=== PATIENT | female | born 1995 | race Caucasian/White ===

== ENCOUNTER 2018-12-09 22:22 | Emergency (ER) | payer MEDICAID, OTHER ==
[2018-12-09] MEDS ORDERED: guaiFENesin/CODEINE 5 ML UDC PO STA (22:38)
[2018-12-09] MEDS ORDERED: AMOX/CLAV 875 MG/125 MG TABLET PO STA (22:38)
--- NOTE | 2018-12-09 22:41 | ED Physician Documentation ---
PD HPI PED ILLNESS - Stated complaint Stated Complaint: SORE THROAT/CONGESTION - Chief complaint Chief Complaint: Heent - History obtained from History obtained from: Patient (23-year-old woman with remote history of empyema presents with a one-week illness with cough, runny nose, sore throat. Today with increased pain in the lower chest with breathing. No fevers. It has been a biphasic illness. Was getting better until today and then got worse again.) Review of Systems Constitutional: reports: Fatigue. denies: Fever, Chills Nose: reports: Rhinorrhea / runny nose, Congestion, Sinus pressure / pain Throat: reports: Sore throat Respiratory: reports: Dyspnea, Cough GI: denies: Abdominal Pain PD PAST MEDICAL HISTORY - Present Medications Home Medications: Ambulatory Orders Medication Instructions Recorded Confirmed Amox/Clav 875/125 [Augmentin] 1 each PO Q12H #20 tablet 12/09/18 guaiFENesin/CODEINE [Robitussin AC] 5 - 10 ml PO Q6H PRN #120 ml 12/09/18 - Allergies Allergies/Adverse Reactions: Allergies Allergy/AdvReac Type Severity Reaction Status Date / Time No Known Drug Allergies Allergy Verified 12/09/18 22:33 PD ED PE NORMAL - Vitals Vital signs reviewed: Yes - General General: Alert and oriented X 3, No acute distress - HEENT HEENT: Other (Red oropharynx, moderately tender maxillary sinuses, TMs normal) - Neck Neck: Supple, no meningeal sign, No bony TTP - Cardiac Cardiac: RRR, No murmur - Respiratory Respiratory: No respiratory distress, Clear bilaterally - Abdomen Abdomen: Non tender - Derm Derm: Normal color, Warm and dry - Extremities Extremities: No edema, No calf tenderness / cord - Neuro Neuro: Alert and oriented X 3, Normal speech Results - Vitals Vitals: Vital Signs - 24 hr 12/09/18 22:31 Temperature 36.9 C Heart Rate 100 Respiratory 16 Rate Blood Pressure 146/93 H O2 Saturation 98 Oxygen O2 Source Room air PD MEDICAL DECISION MAKING - ED course ED course: This young lady with clinical sinusitis, given the biphasic illness and time course she does fit criteria per IDSA for antibiotic treatment. Departure - Departure Disposition: 01 Home, Self Care Clinical Impression: Bronchitis Sinusitis Qualifiers: Sinusitis location: maxillary Chronicity: acute Recurrence: non-recurrent Qualified Code(s): J01.00 - Acute maxillary sinusitis, unspecified Condition: Good Record reviewed to determine appropriate education?: Yes Instructions: ED Sinusitis Abx Tx Prescriptions: Amox/Clav 875/125 [Augmentin] 1 each PO Q12H #20 tablet guaiFENesin/CODEINE [Robitussin AC] 5 - 10 ml PO Q6H PRN #120 ml PRN Reason: Cough Comments: Return for new or worsening symptoms. Follow-up with your doctor mid next week if not better. Your blood pressure was elevated today on check into the emergency department. This does not mean that you have hypertension, it is a common phenomenon to come to the emergency department and have elevated blood pressure. I recommend that you see your primary care physician within the week to have it rechecked when you are feeling better. Forms: Activity restrictions
[2018-12-09 22:55] VITALS: BP 140/106
== END 2018-12-09 22:56 | disposition home or self-care (01) ==
LOC: ED 22:22
DX: J40 Bronchitis, not specified as acute or chronic (principal); J01.00 Acute maxillary sinusitis, unspecified; R03.0 Elevated blood-pressure reading, without diagnosis of hypertension
CPT/HCPCS: 87070; 87430; 99283; A9270

== ENCOUNTER 2020-03-12 07:00 | Outpatient (CLI) | payer MEDICAID | END 2020-03-12 23:59 | disposition home or self-care (01) | LOC: COV 07:00 | PROVIDERS: ATTEND Family Medicine | DX: R50.9 Fever, unspecified (principal); R05 Cough; R06.02 Shortness of breath; R53.83 Other fatigue; R07.0 Pain in throat; R19.7 Diarrhea, unspecified; R43.8 Other disturbances of smell and taste; R09.81 Nasal congestion; J34.89 Other specified disorders of nose and nasal sinuses; R11.2 Nausea with vomiting, unspecified; Z20.822 Contact with and (suspected) exposure to COVID-19 ==